=== PATIENT | female | born 1980 | race Caucasian/White ===

== ENCOUNTER 2020-11-25 03:53 | Inpatient (IN) | payer BC, OTHER ==
[~2020-11-25] VITALS: Ht 153.7 cm; Wt 57.0 kg
--- NOTE | 2020-11-25 04:21 | NUR ---
pt states she has been feeling sick for a few days now, pt complaining of bilateral flank pain, pt is diaphoretic, pt a/ox4, rates flank pain 8 out of 10, bed in low position, side rails up with wheel locks in place
[2020-11-25 04:53] LABS: BASOPHILS % (AUTO) 0 % (0-1); EOSINOPHILS % (AUTO) 0 % (1-7); LYMPHOCYTES % (AUTO) 17 % (22-44); MEAN PLATELET VOLUME 7.6 fL (7.4-10.4); MONOCYTES % (AUTO) 6 % (2-9); NEUTROPHILS % (AUTO) 77 % (42-75); PLATELET COUNT 231 x10^3/uL (130-400); RED BLOOD COUNT 4.34 x10^6/uL (3.82-5.3)
[2020-11-25 04:55] LABS: MICROSCOPIC INDICATED
[2020-11-25 04:55] LABS: MD NO
[2020-11-25 05:02] LABS: ALANINE AMINOTRANSFERASE 34 U/L (12-78); ALBUMIN 3.2 g/dL (3.4-5.0); ANION GAP 10 mmol/L (5-15); CALCIUM 7.9 mg/dL (8.5-10.1); CHLORIDE 101 mmol/L (98-107); CREATININE 1.05 mg/dL (0.55-1.02)
[2020-11-25 05:09] LABS: ALKALINE PHOSPHATASE 43 U/L (45-117); BILIRUBIN,TOTAL 0.4 mg/dL (0.2-1.0); TOTAL PROTEIN 7.5 g/dL (6.4-8.2); TROPONIN I 0.027 ng/mL (0.000-0.045)
[2020-11-25] MEDS ORDERED: PLEASE ENTER ALLERGIES MC SCH (05:30)
[2020-11-25] MEDS ORDERED: SODIUM CHLORIDE 0.9% 1,000ML IVBOLUS ONE ×2 (05:30→06:30)
[2020-11-25] MEDS ORDERED: POTASSIUM CHLORIDE 20 MEQ PACKET ONE (05:31)
--- NOTE | 2020-11-25 05:44 | NUR ---
pt laying in bed, a/ox4, all needs in reach, call light in reach, pt does not have any complaints at this time, significant other at bedside, bed in low position with side rails up and with wheel locks engaged.
[2020-11-25] MEDS ORDERED: POTASSIUM CHLORIDE 20 MEQ PACKET PO ONE (06:00)
--- NOTE | 2020-11-25 06:13 | NUR ---
pt swabbed for flu and for covid, iso cart placed outside of room
[2020-11-25 06:25] LABS: RAPID INFLUENZA A Negative (Negative); RAPID INFLUENZA B Negative (Negative)
[2020-11-25] MEDS ORDERED: OMNIPAQUE 350 MG/ML, 75ML BOTTLE ONE (06:29)
--- NOTE | 2020-11-25 06:46 | NUR ---
BEDSIDE REPORT RECEIVED FROM [facility] ROWE FOR TRANSFER OF PATIENT CARE.
--- NOTE | 2020-11-25 07:11 | NUR ---
ERMD AT BEDSIDE TO DISCUSS POC.
--- NOTE | 2020-11-25 07:37 | NUR ---
SPOKE WITH LAB ABOUT ADDING URINE DRUG SCREEN TO UA ALREADY IN LAB. RESPIRATORY ASSISTANT WILL CALL BACK IF MORE URINE IS NEEDED.
--- NOTE | 2020-11-25 08:02 | NUR ---
PATIENT AMBULATED TO BATHROOM WITH STEADY GAIT.
[2020-11-25 08:03] LABS: AMPHETAMINE SCREEN, URINE Negative (Negative); BARBITURATE SCREEN, URINE Negative (Negative); BENZODIAZEPINE SCREEN, URINE Negative (Negative); CANNABINOID SCREEN, URINE Negative (Negative); COCAINE SCREEN, URINE Negative (Negative); METHADONE SCREEN, URINE Negative (Negative); OPIATE SCREEN, URINE Negative (Negative)
--- NOTE | 2020-11-25 08:08 | NUR ---
PATIENT BACK IN [facility], CONNECTED TO MONITORS, NADN, VSS, CALL LIGHT WITHIN REACH. WAITING FOR BED ASSIGNMENT UPSTAIRS.
--- NOTE | 2020-11-25 09:24 | NUR ---
BREAKFAST TRAY PROVIDED, NADN, VSS, CALL LIGHT WITHIN REACH. WAITING FOR BED ASSIGNTMENT UPSTAIRS.
--- NOTE | 2020-11-25 09:58 | NUR ---
PATIENT RESTING IN [facility], DEREK, VSS, SIGNIFICANT OTHER AT BEDSIDE, CALL LIGHT WITHIN REACH. WAITING FOR ROOM ASSIGNMENT UPSTAIRS.
--- NOTE | 2020-11-25 10:18 | NUR ---
REPORT CALLED TO YOLY SWAIN FOR TRANSFER OF PATIENT CARE.
--- NOTE | 2020-11-25 10:37 | NUR ---
PATIENT TRANSFERRED TO MEDICAL [facility]LEMETRY IN STABLE CONDITION VIA GURNEY ATTACHED TO [employer] WITH BATCHER OPERATOR. ALL PATIENT BELONGINGS TAKEN TO FLOOR WITH PATIENT.
[2020-11-25 10:40] VITALS: BP 100/68
[2020-11-25] MEDS ORDERED: CEFTRIAXONE 1,000 MG in DEXTROSE 5% 50 ML IVPB SCH (12:30)
[2020-11-25] MEDS: ENOXAPARIN 40 MG/0.4 ML SQ SCH (12:30)
[2020-11-25] MEDS ORDERED: ONDANSETRON 2MG/ML, 2ML IVPush PRN (12:30)
[2020-11-25] MEDS: SODIUM CHLORIDE 0.9% 1,000 ML IV SCH (12:30)
[2020-11-25] MEDS ORDERED: DOCUSATE 100 MG CAPSULE PO PRN (12:30)
[2020-11-25 12:55] LABS: HCT (SEDRATE) 35.9 % (34.6-47.8)
[2020-11-25 14:57] VITALS: BP 106/70
[2020-11-25] MEDS ORDERED: PHARMACY INSTRUCTION MC PRN (15:30)
[2020-11-25] MEDS: ACETAMINOPHEN 325 MG TABLET PO PRN (16:48)
[2020-11-25] MEDS: PIPERACILLIN/TAZO 3.375 GM in DEXTROSE 5% 50 ML IV SCH (18:21)
[2020-11-25 18:26] LABS: ANION GAP 6 mmol/L (5-15); CALCIUM 7.6 mg/dL (8.5-10.1); CHLORIDE 107 mmol/L (98-107)
[2020-11-25 18:31] LABS: CREATININE 0.77 mg/dL (0.55-1.02); TROPONIN I 0.024 ng/mL (0.000-0.045)
[2020-11-25] MEDS: LINEZOLID PMX 600MG/300ML 300 ML IV SCH (19:05)
[2020-11-25 21:07] VITALS: BP 100/63
[2020-11-26 00:20] VITALS: BP 121/72
[2020-11-26] MEDS: PIPERACILLIN/TAZO 3.375 GM in DEXTROSE 5% 50 ML IV SCH ×5 (00:25→23:38)
[2020-11-26] MEDS: ACETAMINOPHEN 325 MG TABLET PO PRN ×4 (00:28→21:08)
[2020-11-26] MEDS: SODIUM CHLORIDE 0.9% 1,000 ML IV SCH ×3 (03:11→23:33)
[2020-11-26 06:14] LABS: BASOPHILS % (AUTO) 0 % (0-1); EOSINOPHILS % (AUTO) 0 % (1-7); LYMPHOCYTES % (AUTO) 23 % (22-44); MEAN CORPUSCULAR HEMOGLOBIN 30.8 pg (27.0-34.8); MEAN CORPUSCULAR HGB CONC 34.4 g/dL (32.4-35.8); MEAN PLATELET VOLUME 7.4 fL (7.4-10.4); MONOCYTES % (AUTO) 5 % (2-9); NEUTROPHILS % (AUTO) 72 % (42-75); PLATELET COUNT 188 x10^3/uL (130-400); RED BLOOD COUNT 4.07 x10^6/uL (3.82-5.3); RED CELL DISTRIBUTION WIDTH 12.3 % (9.6-15.2)
[2020-11-26 06:17] LABS: MD NO
[2020-11-26 06:20] LABS: ALANINE AMINOTRANSFERASE 35 U/L (12-78); ALBUMIN 2.4 g/dL (3.4-5.0); ANION GAP 7 mmol/L (5-15); CALCIUM 7.1 mg/dL (8.5-10.1); CHLORIDE 109 mmol/L (98-107)
[2020-11-26] MEDS: LINEZOLID PMX 600MG/300ML 300 ML IV SCH ×2 (06:33→18:30)
[2020-11-26 06:34] LABS: ALKALINE PHOSPHATASE 32 U/L (45-117); BILIRUBIN,TOTAL 0.2 mg/dL (0.2-1.0); CREATINE KINASE, TOTAL 1043 U/L (26-192); CREATININE 0.77 mg/dL (0.55-1.02); TOTAL PROTEIN 6.1 g/dL (6.4-8.2)
[2020-11-26] MEDS ORDERED: POTASSIUM PHOSPHATE 44 MEQ in SODIUM CHLORIDE 0.9% 500 ML IV ONE (07:30)
[2020-11-26] MEDS ORDERED: CYANOCOBALAMIN 1,000 MCG/ML, 1ML IM ONE (07:30)
[2020-11-26 07:32] VITALS: BP 113/73
[2020-11-26] MEDS: ZINC SULFATE 220 MG CAPSULE PO SCH (08:32)
[2020-11-26] MEDS: MULTIVITS,STRESS FORMULA 1 TABLET PO SCH (08:32)
[2020-11-26] MEDS: CALCIUM CARBONATE 500 MG TAB.CHEW PO SCH ×2 (08:33→21:08)
[2020-11-26] MEDS: CHOLECALCIFEROL 5,000u TAB PO SCH (08:33)
[2020-11-26] MEDS: ENOXAPARIN 40 MG/0.4 ML SQ SCH (12:51)
[2020-11-26 12:54] VITALS: BP 104/64
[2020-11-26] MEDS: ASCORBIC ACID 500 MG TABLET PO SCH ×2 (13:06→17:38)
[2020-11-26 20:10] VITALS: BP 105/72
[2020-11-27 00:33] VITALS: BP 99/63
[2020-11-27] MEDS: PIPERACILLIN/TAZO 3.375 GM in DEXTROSE 5% 50 ML IV SCH (05:43)
[2020-11-27 06:12] LABS: BASOPHILS % (AUTO) 0 % (0-1); EOSINOPHILS % (AUTO) 0 % (1-7); LYMPHOCYTES % (AUTO) 19 % (22-44); MEAN CORPUSCULAR HEMOGLOBIN 30.6 pg (27.0-34.8); MEAN CORPUSCULAR HGB CONC 34.1 g/dL (32.4-35.8); MEAN PLATELET VOLUME 7.8 fL (7.4-10.4); MONOCYTES % (AUTO) 5 % (2-9); NEUTROPHILS % (AUTO) 76 % (42-75); PLATELET COUNT 184 x10^3/uL (130-400); RED BLOOD COUNT 3.86 x10^6/uL (3.82-5.3); RED CELL DISTRIBUTION WIDTH 12.3 % (9.6-15.2)
[2020-11-27 06:14] LABS: MD NO
[2020-11-27 06:17] LABS: ALBUMIN 2.2 g/dL (3.4-5.0); ANION GAP 8 mmol/L (5-15); CHLORIDE 107 mmol/L (98-107); CREATININE 0.59 mg/dL (0.55-1.02)
[2020-11-27] MEDS: LINEZOLID PMX 600MG/300ML 300 ML IV SCH (06:17)
[2020-11-27 06:50] VITALS: BP 118/75
[2020-11-27] MEDS: ASCORBIC ACID 500 MG TABLET PO SCH ×2 (08:21→16:58)
[2020-11-27] MEDS: ACETAMINOPHEN 325 MG TABLET PO PRN ×2 (08:21→12:31)
[2020-11-27] MEDS: MULTIVITS,STRESS FORMULA 1 TABLET PO SCH (08:21)
[2020-11-27] MEDS: ZINC SULFATE 220 MG CAPSULE PO SCH (08:21)
[2020-11-27] MEDS: CALCIUM CARBONATE 500 MG TAB.CHEW PO SCH ×2 (08:21→21:31)
[2020-11-27] MEDS: CHOLECALCIFEROL 5,000u TAB PO SCH (08:21)
[2020-11-27] MEDS: SODIUM CHLORIDE 0.9% 1,000 ML IV SCH ×3 (08:36→22:50)
[2020-11-27 12:02] VITALS: BP 102/67
[2020-11-27] MEDS: ENOXAPARIN 40 MG/0.4 ML SQ SCH (12:31)
[2020-11-27 20:10] VITALS: BP 107/69
[2020-11-28 01:22] VITALS: BP 110/73
[2020-11-28] MEDS: ACETAMINOPHEN 325 MG TABLET PO PRN ×2 (02:31→12:14)
[2020-11-28] MEDS: SODIUM CHLORIDE 0.9% 1,000 ML IV SCH ×3 (05:17→18:56)
[2020-11-28 06:39] VITALS: BP 106/70
[2020-11-28] MEDS: ZINC SULFATE 220 MG CAPSULE PO SCH (07:48)
[2020-11-28] MEDS: CHOLECALCIFEROL 5,000u TAB PO SCH (07:48)
[2020-11-28] MEDS: CALCIUM CARBONATE 500 MG TAB.CHEW PO SCH ×2 (07:48→20:27)
[2020-11-28] MEDS: MULTIVITS,STRESS FORMULA 1 TABLET PO SCH (07:48)
[2020-11-28] MEDS: ASCORBIC ACID 500 MG TABLET PO SCH ×2 (07:48→17:28)
[2020-11-28 09:15] LABS: MEAN CORPUSCULAR HEMOGLOBIN 30.7 pg (27.0-34.8); MEAN CORPUSCULAR HGB CONC 34.3 g/dL (32.4-35.8); MEAN PLATELET VOLUME 7.3 fL (7.4-10.4); PLATELET COUNT 175 x10^3/uL (130-400); RED BLOOD COUNT 4.03 x10^6/uL (3.82-5.3); RED CELL DISTRIBUTION WIDTH 12.6 % (9.6-15.2)
[2020-11-28 09:26] LABS: ALBUMIN 2.3 g/dL (3.4-5.0); ANION GAP 8 mmol/L (5-15); CALCIUM 7.4 mg/dL (8.5-10.1); CHLORIDE 107 mmol/L (98-107)
[2020-11-28 09:27] LABS: CREATININE 0.54 mg/dL (0.55-1.02)
[2020-11-28 09:38] LABS: MD YES
[2020-11-28 09:45] LABS: BAND#(MANUAL) 0.16 x10^3/uL; BANDS%(MANUAL) 9 % (0-7); LYMPH#(MANUAL) 0.45 x10^3/uL (1-3.4); LYMPHS% (MANUAL) 25 % (22-44); METAMYELOCYTES# (MANUAL) 0.04 x10^3/uL (0-0); METAMYELOCYTES% (MANUAL) 2 % (0-1); MONOS#(MANUAL) 0.13 x10^3/uL (0.3-2.7); MONOS% (MANUAL) 7 % (2-9); REACTIVE LYMPHS # (MANUAL) 0.02 x10^3/uL (0-0); REACTIVE LYMPHS % (MANUAL) 1 % (0-0); SEG#(MANUAL) 1.01 x10^3/uL (1.8-6.8); SEGS% (MANUAL) 56 % (42-75)
[2020-11-28 09:54] LABS: <PLATELET ESTIMATE> ADEQUATE; <PLT MORPHOLOGY> NORMAL PLT MORPH; <RBC MORPHOLOGY> NORMAL
[2020-11-28 10:57] LABS: CLOSTRIDIUM DIFFICILE ANTIGEN NEGATIVE; CLOSTRIDIUM DIFFICILE TOXIN NEGATIVE (Negative)
[2020-11-28] MEDS: ENOXAPARIN 40 MG/0.4 ML SQ SCH (12:14)
[2020-11-28 13:01] VITALS: BP 124/85
[2020-11-28 18:50] VITALS: BP 122/79
[2020-11-28] MEDS ORDERED: MELATONIN 5 MG TABLET ONE (21:28)
[2020-11-28] MEDS ORDERED: TEMAZEPAM 15 MG CAPSULE PO PRN (21:30)
[2020-11-28] MEDS: MELATONIN 5 MG TABLET PO PRN (21:31)
[2020-11-29 01:26] VITALS: BP 107/66
[2020-11-29] MEDS: ACETAMINOPHEN 325 MG TABLET PO PRN ×2 (01:27→17:52)
[2020-11-29] MEDS: SODIUM CHLORIDE 0.9% 1,000 ML IV SCH ×3 (01:27→17:51)
[2020-11-29 07:30] VITALS: BP 113/79
[2020-11-29] MEDS ORDERED: FENTANYL PF 100 MCG/2ML ONE (09:40)
[2020-11-29] MEDS ORDERED: MIDAZOLAM 1 MG/ML, 5ML ONE (09:40)
[2020-11-29] MEDS ORDERED: FLUMAZENIL 0.1 MG/1 ML, 5ML ONE (09:41)
[2020-11-29] MEDS ORDERED: NALOXONE 1 MG/ML, 2ML ONE (09:41)
[2020-11-29 12:13] VITALS: BP 133/87
[2020-11-29] MEDS: CHOLECALCIFEROL 5,000u TAB PO SCH (12:38)
[2020-11-29] MEDS: MULTIVITS,STRESS FORMULA 1 TABLET PO SCH (12:38)
[2020-11-29] MEDS: CALCIUM CARBONATE 500 MG TAB.CHEW PO SCH ×3 (12:38→21:32)
[2020-11-29] MEDS: ENOXAPARIN 40 MG/0.4 ML SQ SCH (12:46)
[2020-11-29] MEDS: ASCORBIC ACID 500 MG TABLET PO SCH ×2 (12:46→17:51)
[2020-11-29] MEDS: ZINC SULFATE 220 MG CAPSULE PO SCH (12:46)
[2020-11-29 19:17] VITALS: BP 107/64
[2020-11-30 00:13] VITALS: BP 102/67
[2020-11-30] MEDS: SODIUM CHLORIDE 0.9% 1,000 ML IV SCH ×4 (00:13→19:50)
[2020-11-30 06:44] VITALS: BP 117/71
[2020-11-30 08:27] LABS: MEAN CORPUSCULAR HEMOGLOBIN 30.5 pg (27.0-34.8); MEAN CORPUSCULAR HGB CONC 34.4 g/dL (32.4-35.8); MEAN PLATELET VOLUME 7.4 fL (7.4-10.4); PLATELET COUNT 174 x10^3/uL (130-400); RED BLOOD COUNT 3.86 x10^6/uL (3.82-5.3); RED CELL DISTRIBUTION WIDTH 12.5 % (9.6-15.2)
[2020-11-30 08:30] LABS: ALBUMIN 2.3 g/dL (3.4-5.0); ANION GAP 5 mmol/L (5-15); CALCIUM 7.2 mg/dL (8.5-10.1); CHLORIDE 108 mmol/L (98-107); CREATININE 0.57 mg/dL (0.55-1.02)
[2020-11-30 08:31] LABS: MD YES
[2020-11-30 09:16] LABS: BAND#(MANUAL) 0.07 x10^3/uL; BANDS%(MANUAL) 6 % (0-7); SEG#(MANUAL) 0.52 x10^3/uL (1.8-6.8); SEGS% (MANUAL) 47 % (42-75)
[2020-11-30 09:17] LABS: <RBC MORPHOLOGY> NORMAL; LYMPH#(MANUAL) 0.34 x10^3/uL (1-3.4); LYMPHS% (MANUAL) 31 % (22-44); MONOS#(MANUAL) 0.14 x10^3/uL (0.3-2.7); MONOS% (MANUAL) 13 % (2-9); REACTIVE LYMPHS # (MANUAL) 0.03 x10^3/uL (0-0); REACTIVE LYMPHS % (MANUAL) 3 % (0-0)
[2020-11-30 09:22] LABS: <PLATELET ESTIMATE> ADEQUATE; <PLT MORPHOLOGY> NORMAL PLT MORPH
[2020-11-30] MEDS: MULTIVITS,STRESS FORMULA 1 TABLET PO SCH (10:37)
[2020-11-30] MEDS: ASCORBIC ACID 500 MG TABLET PO SCH ×2 (10:37→18:14)
[2020-11-30] MEDS: CHOLECALCIFEROL 5,000u TAB PO SCH (10:37)
[2020-11-30] MEDS: ZINC SULFATE 220 MG CAPSULE PO SCH (10:37)
[2020-11-30] MEDS: CALCIUM CARBONATE 500 MG TAB.CHEW PO SCH ×2 (10:38→20:21)
[2020-11-30] MEDS: ENOXAPARIN 40 MG/0.4 ML SQ SCH (12:55)
[2020-11-30] MEDS ORDERED: CYANOCOBALAMIN 1,000 MCG/ML, 1ML IM ONE (13:30)
[2020-11-30] MEDS ORDERED: POTASSIUM PHOSPHATE 44 MEQ in SODIUM CHLORIDE 0.9% 500 ML IV ONE (13:30)
[2020-11-30 14:35] VITALS: BP 112/75
[2020-11-30] MEDS: ACETAMINOPHEN 325 MG TABLET PO PRN (14:54)
[2020-11-30] MEDS: POTASSIUM CHLORIDE 20 MEQ TAB.ER.PRT PO SCH (18:14)
[2020-11-30 20:20] VITALS: BP 115/77
[2020-12-01 00:52] VITALS: BP 115/76
[2020-12-01] MEDS: SODIUM CHLORIDE 0.9% 1,000 ML IV SCH ×3 (04:36→18:22)
[2020-12-01 05:51] LABS: MEAN CORPUSCULAR HEMOGLOBIN 30.8 pg (27.0-34.8); MEAN CORPUSCULAR HGB CONC 34.9 g/dL (32.4-35.8); MEAN PLATELET VOLUME 7.6 fL (7.4-10.4); PLATELET COUNT 171 x10^3/uL (130-400); RED CELL DISTRIBUTION WIDTH 12.6 % (9.6-15.2)
[2020-12-01 06:07] LABS: CHLORIDE 110 mmol/L (98-107)
[2020-12-01 06:08] LABS: MD YES
[2020-12-01 06:12] LABS: ALBUMIN 2.3 g/dL (3.4-5.0); ANION GAP 8 mmol/L (5-15); CALCIUM 7.6 mg/dL (8.5-10.1); CREATININE 0.53 mg/dL (0.55-1.02)
[2020-12-01 06:14] LABS: BAND#(MANUAL) 0.04 x10^3/uL; BANDS%(MANUAL) 4 % (0-7); SEG#(MANUAL) 0.37 x10^3/uL (1.8-6.8); SEGS% (MANUAL) 41 % (42-75)
[2020-12-01 06:15] LABS: EOS#(MANUAL) 0.01 x10^3/uL (0.0-0.4); EOS% (MANUAL) 1 % (1-7); LYMPH#(MANUAL) 0.36 x10^3/uL (1-3.4); LYMPHS% (MANUAL) 40 % (22-44); MONOS#(MANUAL) 0.13 x10^3/uL (0.3-2.7); MONOS% (MANUAL) 14 % (2-9)
[2020-12-01 06:16] LABS: <PLATELET ESTIMATE> ADEQUATE; <PLT MORPHOLOGY> NORMAL PLT MORPH
[2020-12-01 06:17] LABS: OVALOCYTES 1+
[2020-12-01 08:53] VITALS: BP 125/84
[2020-12-01] MEDS: CHOLECALCIFEROL 5,000u TAB PO SCH (08:58)
[2020-12-01] MEDS: MULTIVITS,STRESS FORMULA 1 TABLET PO SCH (08:58)
[2020-12-01] MEDS: ASCORBIC ACID 500 MG TABLET PO SCH ×2 (08:58→18:22)
[2020-12-01] MEDS: ZINC SULFATE 220 MG CAPSULE PO SCH (08:58)
[2020-12-01] MEDS: POTASSIUM CHLORIDE 20 MEQ TAB.ER.PRT PO SCH ×2 (08:58→18:22)
[2020-12-01] MEDS: CALCIUM CARBONATE 500 MG TAB.CHEW PO SCH ×2 (08:58→20:37)
[2020-12-01] MEDS: ACETAMINOPHEN 325 MG TABLET PO PRN ×2 (08:58→20:38)
[2020-12-01] MEDS: ENOXAPARIN 40 MG/0.4 ML SQ SCH (12:38)
[2020-12-01] MEDS ORDERED: TBO-FILGRASTIM 300 MCG/0.5 ML SQ ONE (13:30)
[2020-12-01 15:40] VITALS: BP 105/65
[2020-12-01 20:01] VITALS: BP 111/71
[2020-12-01] MEDS: MELATONIN 5 MG TABLET PO PRN (20:38)
[2020-12-02] MEDS: SODIUM CHLORIDE 0.9% 1,000 ML IV SCH ×4 (01:00→20:48)
[2020-12-02 01:42] VITALS: BP 102/78
[2020-12-02 05:23] LABS: MEAN CORPUSCULAR HEMOGLOBIN 30.5 pg (27.0-34.8); MEAN CORPUSCULAR HGB CONC 34.3 g/dL (32.4-35.8); MEAN PLATELET VOLUME 8.1 fL (7.4-10.4); PLATELET COUNT 188 x10^3/uL (130-400); RED BLOOD COUNT 3.76 x10^6/uL (3.82-5.3); RED CELL DISTRIBUTION WIDTH 12.4 % (9.6-15.2)
[2020-12-02 05:29] LABS: CHLORIDE 109 mmol/L (98-107)
[2020-12-02 05:43] LABS: ALANINE AMINOTRANSFERASE 524 U/L (12-78); ALBUMIN 2.2 g/dL (3.4-5.0); ALKALINE PHOSPHATASE 68 U/L (45-117); ANION GAP 8 mmol/L (5-15); BILIRUBIN,TOTAL 0.4 mg/dL (0.2-1.0); CALCIUM 7.6 mg/dL (8.5-10.1); CREATININE 0.46 mg/dL (0.55-1.02); TOTAL PROTEIN 5.9 g/dL (6.4-8.2)
[2020-12-02 06:01] LABS: MD YES
[2020-12-02 06:03] LABS: BANDS%(MANUAL) 21 % (0-7); LYMPH#(MANUAL) 0.74 x10^3/uL (1-3.4); LYMPHS% (MANUAL) 6 % (22-44); METAMYELOCYTES# (MANUAL) 0.37 x10^3/uL (0-0); METAMYELOCYTES% (MANUAL) 3 % (0-1); MONOS#(MANUAL) 0.37 x10^3/uL (0.3-2.7); MONOS% (MANUAL) 3 % (2-9); SEG#(MANUAL) 8.31 x10^3/uL (1.8-6.8); SEGS% (MANUAL) 67 % (42-75)
[2020-12-02 06:05] LABS: <PLATELET ESTIMATE> ADEQUATE; <PLT MORPHOLOGY> NORMAL PLT MORPH; OVALOCYTES 1+
[2020-12-02 08:16] LABS: INTERNATIONAL NORMALIZED RATIO 1.02 (0.93-1.1); PROTHROMBIN TIME 10.9 Seconds (9.6-11.5)
[2020-12-02 08:42] VITALS: BP 114/75
[2020-12-02] MEDS: MULTIVITS,STRESS FORMULA 1 TABLET PO SCH (08:44)
[2020-12-02] MEDS: ASCORBIC ACID 500 MG TABLET PO SCH ×2 (08:45→16:44)
[2020-12-02] MEDS: ZINC SULFATE 220 MG CAPSULE PO SCH (08:45)
[2020-12-02] MEDS: CALCIUM CARBONATE 500 MG TAB.CHEW PO SCH ×2 (08:45→20:48)
[2020-12-02] MEDS: POTASSIUM CHLORIDE 20 MEQ TAB.ER.PRT PO SCH ×2 (08:45→16:44)
[2020-12-02] MEDS: CHOLECALCIFEROL 5,000u TAB PO SCH (08:45)
[2020-12-02] MEDS ORDERED: TBO-FILGRASTIM 300 MCG/0.5 ML SQ SCH (09:00)
[2020-12-02] MEDS: ACETAMINOPHEN 325 MG TABLET PO PRN (09:10)
[2020-12-02] MEDS: ENOXAPARIN 40 MG/0.4 ML SQ SCH (12:01)
[2020-12-02 12:04] VITALS: BP 112/74
[2020-12-02 20:54] VITALS: BP 137/80
[2020-12-03 02:43] VITALS: BP 120/76
[2020-12-03] MEDS: ACETAMINOPHEN 325 MG TABLET PO PRN ×3 (03:03→21:17)
[2020-12-03] MEDS: SODIUM CHLORIDE 0.9% 1,000 ML IV SCH ×3 (03:04→18:24)
[2020-12-03 05:34] LABS: MEAN CORPUSCULAR HEMOGLOBIN 31.2 pg (27.0-34.8); MEAN CORPUSCULAR HGB CONC 34.8 g/dL (32.4-35.8); MEAN PLATELET VOLUME 7.8 fL (7.4-10.4); PLATELET COUNT 212 x10^3/uL (130-400); RED BLOOD COUNT 3.44 x10^6/uL (3.82-5.3); RED CELL DISTRIBUTION WIDTH 12.6 % (9.6-15.2)
[2020-12-03 05:40] LABS: ALBUMIN 2.3 g/dL (3.4-5.0); ANION GAP 9 mmol/L (5-15); CALCIUM 7.6 mg/dL (8.5-10.1); CHLORIDE 108 mmol/L (98-107)
[2020-12-03 05:43] LABS: ALANINE AMINOTRANSFERASE 386 U/L (12-78); ALKALINE PHOSPHATASE 71 U/L (45-117); BILIRUBIN,TOTAL 0.4 mg/dL (0.2-1.0); CREATININE 0.41 mg/dL (0.55-1.02); TOTAL PROTEIN 5.9 g/dL (6.4-8.2)
[2020-12-03 05:57] LABS: MD YES
[2020-12-03 06:00] LABS: BAND#(MANUAL) 4.97 x10^3/uL; BANDS%(MANUAL) 27 % (0-7); LYMPH#(MANUAL) 0.74 x10^3/uL (1-3.4); LYMPHS% (MANUAL) 4 % (22-44); MONOS#(MANUAL) 0.37 x10^3/uL (0.3-2.7); MONOS% (MANUAL) 2 % (2-9); SEG#(MANUAL) 12.33 x10^3/uL (1.8-6.8); SEGS% (MANUAL) 67 % (42-75)
[2020-12-03 06:01] LABS: <PLATELET ESTIMATE> ADEQUATE; <PLT MORPHOLOGY> NORMAL PLT MORPH; OVALOCYTES 1+
[2020-12-03 07:47] VITALS: BP 121/74
[2020-12-03] MEDS: POTASSIUM CHLORIDE 20 MEQ TAB.ER.PRT PO SCH ×2 (10:38→21:11)
[2020-12-03] MEDS: ZINC SULFATE 220 MG CAPSULE PO SCH (10:38)
[2020-12-03] MEDS: MULTIVITS,STRESS FORMULA 1 TABLET PO SCH (10:38)
[2020-12-03] MEDS: CALCIUM CARBONATE 500 MG TAB.CHEW PO SCH ×2 (10:38→21:11)
[2020-12-03] MEDS: ASCORBIC ACID 500 MG TABLET PO SCH ×2 (10:38→21:11)
[2020-12-03] MEDS: CHOLECALCIFEROL 5,000u TAB PO SCH (10:38)
[2020-12-03] MEDS: ENOXAPARIN 40 MG/0.4 ML SQ SCH (10:39)
[2020-12-03 12:15] VITALS: BP 111/76
[2020-12-03 20:00] VITALS: BP 109/73
[2020-12-04] MEDS: SODIUM CHLORIDE 0.9% 1,000 ML IV SCH ×2 (00:53→10:47)
[2020-12-04 02:21] VITALS: BP 131/88
[2020-12-04] MEDS: ACETAMINOPHEN 325 MG TABLET PO PRN ×4 (02:37→21:38)
[2020-12-04 06:42] LABS: BASOPHILS % (AUTO) 1 % (0-1); EOSINOPHILS % (AUTO) 0 % (1-7); LYMPHOCYTES % (AUTO) 7 % (22-44); MEAN CORPUSCULAR HEMOGLOBIN 30.8 pg (27.0-34.8); MEAN CORPUSCULAR HGB CONC 34.5 g/dL (32.4-35.8); MEAN PLATELET VOLUME 7.9 fL (7.4-10.4); MONOCYTES % (AUTO) 5 % (2-9); NEUTROPHILS % (AUTO) 87 % (42-75); PLATELET COUNT 227 x10^3/uL (130-400); RED BLOOD COUNT 3.38 x10^6/uL (3.82-5.3); RED CELL DISTRIBUTION WIDTH 12.4 % (9.6-15.2)
[2020-12-04 06:43] LABS: MD NO
[2020-12-04 06:57] LABS: CHLORIDE 108 mmol/L (98-107)
[2020-12-04 07:01] LABS: ALANINE AMINOTRANSFERASE 315 U/L (12-78); ALBUMIN 2.3 g/dL (3.4-5.0); ALKALINE PHOSPHATASE 71 U/L (45-117); ANION GAP 7 mmol/L (5-15); BILIRUBIN,TOTAL 0.4 mg/dL (0.2-1.0); CALCIUM 7.7 mg/dL (8.5-10.1)
[2020-12-04 07:51] VITALS: BP 106/63
[2020-12-04] MEDS: CHOLECALCIFEROL 5,000u TAB PO SCH (09:10)
[2020-12-04] MEDS: ZINC SULFATE 220 MG CAPSULE PO SCH (09:10)
[2020-12-04] MEDS: POTASSIUM CHLORIDE 20 MEQ TAB.ER.PRT PO SCH ×3 (09:10→21:38)
[2020-12-04] MEDS: ASCORBIC ACID 500 MG TABLET PO SCH ×2 (09:10→18:13)
[2020-12-04] MEDS: CALCIUM CARBONATE 500 MG TAB.CHEW PO SCH ×2 (09:10→21:27)
[2020-12-04] MEDS: MULTIVITS,STRESS FORMULA 1 TABLET PO SCH (09:10)
[2020-12-04] MEDS: VALACYCLOVIR 500MG TABLET PO SCH ×2 (10:47→18:12)
[2020-12-04 13:10] VITALS: BP 105/59
[2020-12-04] MEDS: ENOXAPARIN 40 MG/0.4 ML SQ SCH (14:21)
[2020-12-04 21:25] VITALS: BP 90/53
[2020-12-04 21:26] VITALS: BP 103/61
[2020-12-05] MEDS: SODIUM CHLORIDE 0.9% 1,000 ML IV SCH (00:17)
[2020-12-05 00:21] VITALS: BP 98/65
[2020-12-05 05:55] LABS: BASOPHILS % (AUTO) 1 % (0-1); EOSINOPHILS % (AUTO) 1 % (1-7); LYMPHOCYTES % (AUTO) 23 % (22-44); MEAN CORPUSCULAR HEMOGLOBIN 31.6 pg (27.0-34.8); MEAN CORPUSCULAR HGB CONC 34.7 g/dL (32.4-35.8); MEAN PLATELET VOLUME 7.6 fL (7.4-10.4); MONOCYTES % (AUTO) 11 % (2-9); NEUTROPHILS % (AUTO) 65 % (42-75); PLATELET COUNT 210 x10^3/uL (130-400); RED BLOOD COUNT 3.35 x10^6/uL (3.82-5.3); RED CELL DISTRIBUTION WIDTH 12.7 % (9.6-15.2)
[2020-12-05 05:59] LABS: MD NO
[2020-12-05 06:08] LABS: CHLORIDE 110 mmol/L (98-107)
[2020-12-05] MEDS: VALACYCLOVIR 500MG TABLET PO SCH ×3 (06:17→23:33)
[2020-12-05 06:31] LABS: ALANINE AMINOTRANSFERASE 299 U/L (12-78); ALBUMIN 2.2 g/dL (3.4-5.0); ALKALINE PHOSPHATASE 67 U/L (45-117); ANION GAP 7 mmol/L (5-15); BILIRUBIN,TOTAL 0.3 mg/dL (0.2-1.0); CALCIUM 7.5 mg/dL (8.5-10.1); CREATININE 0.53 mg/dL (0.55-1.02); TOTAL PROTEIN 5.7 g/dL (6.4-8.2)
[2020-12-05 07:38] VITALS: BP 114/68
[2020-12-05] MEDS: ENOXAPARIN 40 MG/0.4 ML SQ SCH (07:49)
[2020-12-05] MEDS: POTASSIUM CHLORIDE 20 MEQ TAB.ER.PRT PO SCH ×3 (08:16→20:34)
[2020-12-05] MEDS: CALCIUM CARBONATE 500 MG TAB.CHEW PO SCH ×2 (08:16→20:34)
[2020-12-05] MEDS: MULTIVITS,STRESS FORMULA 1 TABLET PO SCH (08:16)
[2020-12-05] MEDS: ASCORBIC ACID 500 MG TABLET PO SCH ×2 (08:16→15:26)
[2020-12-05] MEDS: CHOLECALCIFEROL 5,000u TAB PO SCH (08:16)
[2020-12-05] MEDS: ZINC SULFATE 220 MG CAPSULE PO SCH (08:16)
[2020-12-05 13:43] VITALS: BP 111/72
[2020-12-05] MEDS: ACETAMINOPHEN 325 MG TABLET PO PRN (15:25)
[2020-12-05] MEDS ORDERED: OMNIPAQUE 350 MG/ML, 100ML BOTTLE ONE (15:50)
[2020-12-05 19:52] VITALS: BP 95/60
[2020-12-06 01:14] VITALS: BP 122/71
[2020-12-06] MEDS: ACETAMINOPHEN 325 MG TABLET PO PRN ×2 (01:21→15:46)
[2020-12-06 06:21] LABS: MEAN CORPUSCULAR HEMOGLOBIN 30.9 pg (27.0-34.8); MEAN CORPUSCULAR HGB CONC 34.5 g/dL (32.4-35.8); MEAN PLATELET VOLUME 8.2 fL (7.4-10.4); PLATELET COUNT 225 x10^3/uL (130-400); RED BLOOD COUNT 3.48 x10^6/uL (3.82-5.3); RED CELL DISTRIBUTION WIDTH 12.8 % (9.6-15.2)
[2020-12-06 06:30] LABS: ALANINE AMINOTRANSFERASE 314 U/L (12-78); ALBUMIN 2.3 g/dL (3.4-5.0); ANION GAP 10 mmol/L (5-15); CALCIUM 8.2 mg/dL (8.5-10.1); CHLORIDE 104 mmol/L (98-107); CREATININE 0.61 mg/dL (0.55-1.02)
[2020-12-06 06:32] LABS: ALKALINE PHOSPHATASE 64 U/L (45-117); BILIRUBIN,TOTAL 0.4 mg/dL (0.2-1.0); CREATINE KINASE, TOTAL 523 U/L (26-192); TOTAL PROTEIN 5.8 g/dL (6.4-8.2)
[2020-12-06 06:55] LABS: MD YES
[2020-12-06 07:01] LABS: BAND#(MANUAL) 0.14 x10^3/uL; BANDS%(MANUAL) 11 % (0-7); EOS#(MANUAL) 0.04 x10^3/uL (0.0-0.4); EOS% (MANUAL) 3 % (1-7); LYMPH#(MANUAL) 0.48 x10^3/uL (1-3.4); LYMPHS% (MANUAL) 37 % (22-44); METAMYELOCYTES# (MANUAL) 0.01 x10^3/uL (0-0); METAMYELOCYTES% (MANUAL) 1 % (0-1); MONOS#(MANUAL) 0.09 x10^3/uL (0.3-2.7); MONOS% (MANUAL) 7 % (2-9); REACTIVE LYMPHS # (MANUAL) 0.03 x10^3/uL (0-0); REACTIVE LYMPHS % (MANUAL) 2 % (0-0); SEG#(MANUAL) 0.51 x10^3/uL (1.8-6.8); SEGS% (MANUAL) 39 % (42-75)
[2020-12-06 07:05] LABS: <PLATELET ESTIMATE> ADEQUATE; <PLT MORPHOLOGY> NORMAL PLT MORPH; OVALOCYTES 1+
[2020-12-06 08:02] VITALS: BP 107/61
[2020-12-06] MEDS: CHOLECALCIFEROL 5,000u TAB PO SCH (08:44)
[2020-12-06] MEDS: CALCIUM CARBONATE 500 MG TAB.CHEW PO SCH ×2 (08:44→22:01)
[2020-12-06] MEDS: ASCORBIC ACID 500 MG TABLET PO SCH ×2 (08:44→15:41)
[2020-12-06] MEDS: ZINC SULFATE 220 MG CAPSULE PO SCH (08:44)
[2020-12-06] MEDS: POTASSIUM CHLORIDE 20 MEQ TAB.ER.PRT PO SCH ×3 (08:44→22:01)
[2020-12-06] MEDS: MULTIVITS,STRESS FORMULA 1 TABLET PO SCH (09:00)
[2020-12-06] MEDS ORDERED: LIDOCAINE 1%, 10ML ONE (09:36)
[2020-12-06] MEDS ORDERED: FENTANYL PF 100 MCG/2ML ONE (10:11)
[2020-12-06] MEDS ORDERED: FLUMAZENIL 0.1 MG/1 ML, 5ML ONE (10:11)
[2020-12-06] MEDS ORDERED: MIDAZOLAM 1 MG/ML, 5ML ONE (10:11)
[2020-12-06] MEDS ORDERED: NALOXONE 1 MG/ML, 2ML ONE (10:12)
[2020-12-06 14:33] VITALS: BP 89/54
[2020-12-06 15:38] VITALS: BP 98/60
[2020-12-06 16:23] LABS: ANA SCREEN POSITIVE (Negative)
[2020-12-06 16:34] LABS: ANTI-NUCLEAR ANTIBODY PATTERN NUCLEOLAR
[2020-12-06 20:17] VITALS: BP 96/64
[2020-12-06] MEDS ORDERED: FUROSEMIDE 20 MG/2 ML IV SCH (21:30)
[2020-12-06] MEDS: ENOXAPARIN 40 MG/0.4 ML SQ SCH (22:05)
[2020-12-07 00:37] VITALS: BP 98/60
[2020-12-07 07:12] VITALS: BP 92/56
[2020-12-07] MEDS: CALCIUM CARBONATE 500 MG TAB.CHEW PO SCH ×2 (08:17→21:13)
[2020-12-07] MEDS: ASCORBIC ACID 500 MG TABLET PO SCH ×2 (08:17→16:36)
[2020-12-07] MEDS: POTASSIUM CHLORIDE 20 MEQ TAB.ER.PRT PO SCH ×3 (08:17→21:13)
[2020-12-07] MEDS: ACETAMINOPHEN 325 MG TABLET PO PRN (08:17)
[2020-12-07] MEDS: MULTIVITS,STRESS FORMULA 1 TABLET PO SCH (08:17)
[2020-12-07] MEDS: CHOLECALCIFEROL 5,000u TAB PO SCH (08:17)
[2020-12-07] MEDS: ZINC SULFATE 220 MG CAPSULE PO SCH (08:17)
[2020-12-07 12:41] VITALS: BP 92/55
[2020-12-07 19:44] VITALS: BP 92/53
[2020-12-07] MEDS: MELATONIN 5 MG TABLET PO PRN (21:13)
[2020-12-07] MEDS: ENOXAPARIN 40 MG/0.4 ML SQ SCH (21:19)
[2020-12-08 02:00] VITALS: BP 97/58
[2020-12-08 08:17] VITALS: BP 84/47
[2020-12-08] MEDS: POTASSIUM CHLORIDE 20 MEQ TAB.ER.PRT PO SCH (09:00)
[2020-12-08] MEDS: CALCIUM CARBONATE 500 MG TAB.CHEW PO SCH (09:00)
[2020-12-08] MEDS: ASCORBIC ACID 500 MG TABLET PO SCH (09:43)
[2020-12-08] MEDS: MULTIVITS,STRESS FORMULA 1 TABLET PO SCH (09:44)
[2020-12-08] MEDS: ZINC SULFATE 220 MG CAPSULE PO SCH (09:44)
[2020-12-08] MEDS: CHOLECALCIFEROL 5,000u TAB PO SCH (09:44)
== END 2020-12-08 13:03 | disposition home or self-care (01) | DRG 854 ==
LOC: ED 05:15 → EDIP 07:16 → 4EST 10:45
PROVIDERS: ADMIT Hospitalist; ATTEND Family Medicine
PROC: 07DR3ZX Extraction of Iliac Bone Marrow, Percutaneous Approach, Diagnostic (ICD-10-PCS; principal; 2020-11-29)
PROC: 07BD3ZX Excision of Aortic Lymphatic, Percutaneous Approach, Diagnostic (ICD-10-PCS; 2020-12-06)
DX: B34.9 Viral infection, unspecified (principal); M62.82 Rhabdomyolysis; N39.0 Urinary tract infection, site not specified; B34.3 Parvovirus infection, unspecified; D61.9 Aplastic anemia, unspecified; D70.9 Neutropenia, unspecified; K52.9 Noninfective gastroenteritis and colitis, unspecified; R74.01 Elevation of levels of liver transaminase levels; E86.0 Dehydration; E87.6 Hypokalemia; F17.200 Nicotine dependence, unspecified, uncomplicated; A53.9 Syphilis, unspecified; D69.59 Other secondary thrombocytopenia; D70.3 Neutropenia due to infection; E83.51 Hypocalcemia; F17.210 Nicotine dependence, cigarettes, uncomplicated; K76.0 Fatty (change of) liver, not elsewhere classified; R59.0 Localized enlarged lymph nodes; Z88.0 Allergy status to penicillin
CPT/HCPCS: 36415; 84145; 86038; 86431; 87046; 87400; 87449; 87486; 87581; 87633; 87798; 87806; 96360; 96361; 99285; J3490; 38222; 49180; 70553; 71045; 71275; 74176; 74177; 76700; 77012; 80048; 80053; 80069; 80074; 80307; 81001; 82330; 82550; 83516; 83520; 83735; 84100; 84443; 84484; 84703; 85025; 85060; 85097; 85379; 85610; 85651; 86039; 86140; 86160; 86162; 86200; 86225; 86235; 86255; 86256; 86308; 86376; 86480; 86592; 86622; 86635; 86644; 86645; 86664; 86665; 86695; 86696; 86706; 86747; 86757; 86790; 87040; 87070; 87075; 87086; 87102; 87205; 87324; 87340; 87385; 87532; 87799; 88237; 88264; 88280; 88305; 88311; 88313; 93005; 93306; 99156; 99157; G0378; J0696; J1650; J2020; J2250; J2543; J3010; Q9967; U0005; G0475; J1447; J2310; J3420; J7030; J7040; U0003

== ENCOUNTER 2020-12-20 12:56 | Inpatient (IN) | payer OTHER ==
[~2020-12-20] VITALS: Ht 154.9 cm; Wt 54.5 kg
[2020-12-20 13:30] LABS: MEAN CORPUSCULAR HEMOGLOBIN 30.6 pg (27.0-34.8); MEAN CORPUSCULAR HGB CONC 34.2 g/dL (32.4-35.8); MEAN PLATELET VOLUME 9.2 fL (7.4-10.4); PLATELET COUNT 172 x10^3/uL (130-400); RED BLOOD COUNT 3.58 x10^6/uL (3.82-5.3); RED CELL DISTRIBUTION WIDTH 13.5 % (9.6-15.2)
[2020-12-20 13:31] LABS: HCT (SEDRATE) 31.9 % (34.6-47.8)
[2020-12-20 13:39] LABS: ANION GAP 10 mmol/L (5-15); CHLORIDE 101 mmol/L (98-107); CREATININE 1.22 mg/dL (0.55-1.02)
--- NOTE | 2020-12-20 13:39 | NUR ---
PT BIB VIA POV. PER PT SHE WAS AT A DOCTOR'S APPT EARLIER AND THEY TOLD HER TO COME TO THE ED BECAUSE SHE HAD LOW BP. PT RESTING IN [facility], MONITORING IN PLACE, DEREK AT THIS TIME, AT BEDSIDE, HORTENCIA.
[2020-12-20 13:43] LABS: CREATINE KINASE, TOTAL 887 U/L (26-192); TROPONIN I 0.017 ng/mL (0.000-0.045)
[2020-12-20 13:49] LABS: BAND#(MANUAL) 0.93 x10^3/uL; BANDS%(MANUAL) 19 % (0-7); EOS% (MANUAL) 2 % (1-7); LYMPHS% (MANUAL) 4 % (22-44); METAMYELOCYTES# (MANUAL) 0.05 x10^3/uL (0-0); METAMYELOCYTES% (MANUAL) 1 % (0-1); MONOS% (MANUAL) 2 % (2-9); SEG#(MANUAL) 3.53 x10^3/uL (1.8-6.8); SEGS% (MANUAL) 72 % (42-75)
[2020-12-20 13:50] LABS: <PLATELET ESTIMATE> DECREASED; <PLT MORPHOLOGY> NORMAL PLT MORPH; PMNS WITH VACUOLES 1+; TEAR DROPS 1+
[2020-12-20] MEDS ORDERED: SODIUM CHLORIDE 0.9% 1,000ML IVBOLUS ONE (14:00)
--- NOTE | 2020-12-20 14:00 | NUR ---
PT UNABLE TO URINATE AT THIS TIME.
[2020-12-20] MEDS ORDERED: ZOLPIDEM 5MG TABLET PO PRN (15:30)
[2020-12-20] MEDS ORDERED: morphine SULFATE 10 MG/ML, 1ML IVPush PRN (15:30)
[2020-12-20] MEDS ORDERED: ONDANSETRON ODT 4 MG PO PRN (15:30)
[2020-12-20] MEDS ORDERED: ACETAMINOPHEN 325 MG TABLET PO PRN (15:30)
[2020-12-20] MEDS ORDERED: ONDANSETRON 2MG/ML, 2ML IVPush PRN (15:30)
[2020-12-20 16:15] LABS: ALANINE AMINOTRANSFERASE 77 U/L (12-78); ALBUMIN 1.8 g/dL (3.4-5.0); ANION GAP 12 mmol/L (5-15); CALCIUM 7.4 mg/dL (8.5-10.1); CHLORIDE 105 mmol/L (98-107); CREATININE 0.96 mg/dL (0.55-1.02)
[2020-12-20 16:17] LABS: ALKALINE PHOSPHATASE 166 U/L (45-117); BILIRUBIN,TOTAL 0.4 mg/dL (0.2-1.0); TOTAL PROTEIN 5.9 g/dL (6.4-8.2)
[2020-12-20 17:07] VITALS: BP 99/68
[2020-12-20] MEDS: SODIUM CHLORIDE 0.9% 1,000 ML IV SCH (17:35)
[2020-12-20 18:58] VITALS: BP 106/71
[2020-12-20 19:02] LABS: MICROSCOPIC INDICATED
[2020-12-21 00:32] VITALS: BP 94/62
[2020-12-21] MEDS: SODIUM CHLORIDE 0.9% 1,000 ML IV SCH ×3 (01:36→16:41)
[2020-12-21 05:14] VITALS: BP 106/70
[2020-12-21 05:19] LABS: MEAN CORPUSCULAR HEMOGLOBIN 30.6 pg (27.0-34.8); MEAN CORPUSCULAR HGB CONC 33.8 g/dL (32.4-35.8); MEAN PLATELET VOLUME 8.6 fL (7.4-10.4); PLATELET COUNT 142 x10^3/uL (130-400); RED BLOOD COUNT 2.92 x10^6/uL (3.82-5.3); RED CELL DISTRIBUTION WIDTH 13.3 % (9.6-15.2)
[2020-12-21 05:29] LABS: ALBUMIN 1.7 g/dL (3.4-5.0); ANION GAP 10 mmol/L (5-15); CALCIUM 7.2 mg/dL (8.5-10.1); CHLORIDE 109 mmol/L (98-107)
[2020-12-21 05:33] LABS: ALANINE AMINOTRANSFERASE 66 U/L (12-78); ALKALINE PHOSPHATASE 150 U/L (45-117); BILIRUBIN,TOTAL 0.4 mg/dL (0.2-1.0); TOTAL PROTEIN 5.4 g/dL (6.4-8.2)
[2020-12-21 06:06] LABS: BANDS%(MANUAL) 28 % (0-7); LYMPH#(MANUAL) 0.22 x10^3/uL (1-3.4); LYMPHS% (MANUAL) 7 % (22-44); MONOS#(MANUAL) 0.13 x10^3/uL (0.3-2.7); MONOS% (MANUAL) 4 % (2-9); OVALOCYTES 1+; SEG#(MANUAL) 1.95 x10^3/uL (1.8-6.8); SEGS% (MANUAL) 61 % (42-75)
[2020-12-21 06:07] LABS: <PLATELET ESTIMATE> ADEQUATE; <PLT MORPHOLOGY> NORMAL PLT MORPH
[2020-12-21 07:12] VITALS: BP 106/68
[2020-12-21] MEDS: methylPREDNISolone SOD SUCC 40 MG/ML IV SCH (08:55)
[2020-12-21 11:49] VITALS: BP 110/76
[2020-12-21 18:52] VITALS: BP 104/69
[2020-12-22] MEDS: SODIUM CHLORIDE 0.9% 1,000 ML IV SCH ×3 (01:04→17:30)
[2020-12-22 01:50] VITALS: BP 106/69
[2020-12-22 06:52] VITALS: BP 114/85
[2020-12-22 08:34] LABS: ALANINE AMINOTRANSFERASE 66 U/L (12-78); ALBUMIN 1.7 g/dL (3.4-5.0); ANION GAP 8 mmol/L (5-15); CALCIUM 7.3 mg/dL (8.5-10.1); CHLORIDE 119 mmol/L (98-107); CREATININE 0.62 mg/dL (0.55-1.02)
[2020-12-22 08:36] LABS: ALKALINE PHOSPHATASE 170 U/L (45-117); BILIRUBIN,TOTAL 0.3 mg/dL (0.2-1.0); MEAN CORPUSCULAR HEMOGLOBIN 30.7 pg (27.0-34.8); MEAN CORPUSCULAR HGB CONC 34.4 g/dL (32.4-35.8); MEAN PLATELET VOLUME 8.5 fL (7.4-10.4); PLATELET COUNT 165 x10^3/uL (130-400); RED BLOOD COUNT 3.06 x10^6/uL (3.82-5.3); RED CELL DISTRIBUTION WIDTH 13.3 % (9.6-15.2); TOTAL PROTEIN 5.7 g/dL (6.4-8.2)
[2020-12-22] MEDS: methylPREDNISolone SOD SUCC 40 MG/ML IV SCH (08:39)
[2020-12-22 09:14] LABS: BAND#(MANUAL) 0.59 x10^3/uL; BANDS%(MANUAL) 15 % (0-7); LYMPH#(MANUAL) 0.35 x10^3/uL (1-3.4); LYMPHS% (MANUAL) 9 % (22-44); METAMYELOCYTES# (MANUAL) 0.04 x10^3/uL (0-0); METAMYELOCYTES% (MANUAL) 1 % (0-1); MONOS#(MANUAL) 0.23 x10^3/uL (0.3-2.7); MONOS% (MANUAL) 6 % (2-9); MYELOCYTES# (MANUAL) 0.08 x10^3/uL (0-0); MYELOCYTES% (MANUAL) 2 % (0-0); REACTIVE LYMPHS # (MANUAL) 0.04 x10^3/uL (0-0); REACTIVE LYMPHS % (MANUAL) 1 % (0-0); SEG#(MANUAL) 2.57 x10^3/uL (1.8-6.8); SEGS% (MANUAL) 66 % (42-75)
[2020-12-22 09:15] LABS: OVALOCYTES 1+
[2020-12-22 09:16] LABS: <PLATELET ESTIMATE> ADEQUATE; <PLT MORPHOLOGY> NORMAL PLT MORPH
[2020-12-22 12:25] VITALS: BP 110/76
[2020-12-22] MEDS ORDERED: PRED20TA PO (12:37)
== END 2020-12-22 17:48 | disposition home or self-care (01) | DRG 683 ==
LOC: ED 13:11 → SUATTDRO 14:47 → OBSVTOIN 15:28 → EDIP 15:28 → 4WST 17:01
PROVIDERS: ADMIT Family Medicine; ATTEND Family Medicine
DX: N17.0 Acute kidney failure with tubular necrosis (principal); M62.82 Rhabdomyolysis; D61.818 Other pancytopenia; Z88.0 Allergy status to penicillin; E86.0 Dehydration; I95.0 Idiopathic hypotension; L30.9 Dermatitis, unspecified; M35.9 Systemic involvement of connective tissue, unspecified; N05.9 Unspecified nephritic syndrome with unspecified morphologic changes
CPT/HCPCS: 36415; 80048; 80053; 81001; 82040; 82140; 82550; 83605; 83735; 84100; 84484; 85025; 85651; 93005; 96374; G0378; J2920; J7030